=== PATIENT | male | born 1950 | race Caucasian/White ===

== ENCOUNTER 2018-11-11 05:34 | Emergency (ER) | payer MEDICARE, MEDICAID ==
[~2018-11-11] VITALS: Ht 167.6 cm; Wt 75.3 kg
[2018-11-11 05:39] VITALS: Ht 167.6 cm; Wt 75.3 kg
--- NOTE | 2018-11-11 06:38 | ERD ---
ER Documentation Chief Complaint Chief Complaint pt reports bledding from mouth since yesterday HPI This is a 68-year-old male with a past medical history of hypertension, end- stage renal disease status post left arm graft on dialysis Monday//Monday who is presenting with reported hematemesis. The patient got dialysis yesterday morning without complication. He went home. At approximately 1:00 in the afternoon, he reports vomiting up bright red blood. He reports spitting up blood since then. He does have clots around the maxillary right teeth that appear to be related to recent dental bleeding, but the patient is adamant that the bleeding is coming from the stomach. The patient does not endorse any active nausea and has not vomited recently. He is simply intermittently spitting up blood. There is does not appear to be any active bleeding. The patient denies any other symptoms. He denies abdominal pain. He denies constipation or diarrhea. He denies black or bloody or tarry stools. He denies headache or vision changes. He denies any lightheadedness or dizziness. The patient denies feeling sick recently. The patient denies fever or chills. The patient has had no headache or vision changes. The patient does not endorse neck or back pain. The patient has had no chest pain or trouble breathing. The patient has had no focal deficits. The patient has had no weakness or numbness or tingling to the face or extremities. ROS All systems reviewed and are negative except as per history of present illness. Medications Home Meds Unable to Obtain Active Prescriptions or Reported Meds Allergies Allergies: Coded Allergies: No Known Allergy (Unverified , 11/11/18) PMhx/Soc Medical and Surgical Hx: pt denies Surgical Hx History of Surgery: Yes (eyes, left arm AV graft) Hx Cardiac Disorders: Yes (Hypertension) Hx Psychiatric Problems: No Hx Miscellaneous Medical Probl: Yes (ESRD on HD) Hx Alcohol Use: No Hx Substance Use: No Hx Tobacco Use: No Smoking Status: Never smoker FmHx Family History: No diabetes Physical Exam Vitals Vital Signs Date Temp Pulse Resp B/P (MAP) Pulse Ox O2 O2 Flow FiO2 Time Delivery Rate 11/11/18 73 20 163/78 98 Room Air 06:20 (106) 11/11/18 98.0 71 16 141/89 98 Room Air 06:02 (106) 11/11/18 97.0 72 16 158/82 98 05:39 (107) Physical Exam Const: No acute distress Head: Atraumatic Eyes: Normal Conjunctiva ENT: Normal External Ears, Nose. Dried clotted blood around the right maxillary teeth appears to be related to a recent bleed. Neck: Full range of motion. No meningismus. Resp: Clear to auscultation bilaterally Cardio: Regular rate and rhythm, no murmurs Abd: Soft, non tender, non distended. Normal bowel sounds Skin: No petechiae or rashes Back: No midline or flank tenderness Ext: No cyanosis, or edema. Right upper extremity AV graft with palpable pulsatile thrill. Neur: Awake and alert Psych: Normal Mood and Affect Result Diagram: 11/11/18 0700 11/11/18 0700 Results 24 hrs Laboratory Tests Test 11/11/18 07:00 White Blood Count 6.4 10^3/ul Red Blood Count 3.72 10^6/ul Hemoglobin 10.9 g/dl Hematocrit 34.9 % Mean Corpuscular Volume 93.8 fl Mean Corpuscular Hemoglobin 29.3 pg Mean Corpuscular Hemoglobin Concent 31.2 g/dl Red Cell Distribution Width 16.1 % Platelet Count 121 10^3/UL Mean Platelet Volume 10.4 fl Immature Granulocytes % 0.200 % Neutrophils % 48.9 % Lymphocytes % 34.5 % Monocytes % 10.3 % Eosinophils % 5.6 % Basophils % 0.5 % Nucleated Red Blood Cells % 0.0 /100WBC Immature Granulocytes # 0.010 10^3/ul Neutrophils # 3.1 10^3/ul Lymphocytes # 2.2 10^3/ul Monocytes # 0.7 10^3/ul Eosinophils # 0.4 10^3/ul Basophils # 0.0 10^3/ul Nucleated Red Blood Cells # 0.0 10^3/ul Prothrombin Time 12.8 Sec Prothrombin Time Ratio 1.0 INR International Normalized Ratio 0.95 Activated Partial Thromboplast Time 37.0 Sec Sodium Level 141 mmol/L Potassium Level 4.4 mmol/L Chloride Level 102 mmol/L Carbon Dioxide Level 26 mmol/L Anion Gap 13 Blood Urea Nitrogen 53 mg/dl Creatinine 8.17 mg/dl Est Glomerular Filtrat Rate mL/min 7 mL/min Glucose Level 117 mg/dl Calcium Level 8.8 mg/dl Total Bilirubin 0.2 mg/dl Direct Bilirubin 0.00 mg/dl Indirect Bilirubin 0.2 mg/dl Aspartate Amino Transf (AST/SGOT) 14 IU/L Alanine Aminotransferase (ALT/SGPT) 18 IU/L Alkaline Phosphatase 74 IU/L Troponin I < 0.012 ng/ml Total Protein 7.4 g/dl Albumin 4.2 g/dl Globulin 3.20 g/dl Albumin/Globulin Ratio 1.31 Current Medications Medications Dose Sig/Hodan Start Time Status Last (Trade) Ordered Route PRN Stop Time Admin Dose Reason Admin Famotidine 20 mg ONCE STAT 11/11/18 DC (Pepcid Iv) IV 07:00 11/11/18 07:02 40 ml ONCE STAT 11/11/18 DC Miscellaneous PO 07:00 Medication 11/11/18 07:02 (Gi Cocktail (2)) Belladonna/ 2 tab ONCE STAT 11/11/18 DC Phenobarbital PO 07:00 () 11/11/18 07:02 Procedures/MDM MDM The patient's presentation warrants further investigation. Previous medical records, if available, were reviewed. LABS The patient's laboratory testing was obtained and reviewed. No emergent treatment was required unless described below. CBC: No E/o systemic infection or thrombocytopenia. Mild normocytic anemia, not emergent. Chemistry: No E/o severe acidosis or alkalosis or liver disease or diabetic ketoacidosis. Elevated BUN and creatinine in line with known end-stage renal disease. PT/INR: No E/o significant coagulopathy Troponin: No E/o acute ischemia Type & screen: O positive EKG EKG read by me: Rate/Rhythm: Regular rate and rhythm at a rate of 72 bpm Intervals: Normal [place]: Left axis deviation Impression: No evidence of acute ischemia or arrhythmia IMAGING Imaging and Radiology interpretation reviewed. CXR 1V Interpreted by me Soft Tissue: No acute abnormalities Bones: No acute abnormalities Mediastinum/Cardiac Silhouette: Unremarkable. No widened mediastinum. Lungs: No acute abnormalities. Normal pulmonary vasculature. No pneumothorax. No pulmonary edema. Clear costal diaphragmatic angles. No pleural effusions. No opacity or consolidations concerning for pneumonia. TREATMENT/DISPOSITION The patient presents for reported GI bleeding. I do see evidence of bleeding from the gums recently, and I am suspicious that this is the etiology of his bleeding. If he swallowed this blood, he that could have led to vomiting blood yesterday. The patient's chest x-ray is unremarkable. I do not see any evidence of pneumoperitoneum. The patient's abdominal exam is benign. I do not suspect viscus perforation. Peptic ulcer disease versus gastritis are certainly possibilities. The patient was given a GI cocktail and Pepcid in the emergency department. The patient's bleeding did start after dialysis. It is also possible that the heparin from dialysis was still in his system. At this time, I do not feel that protamine is required as I do not see any evidence of active bleeding. The patient does not have symptoms of symptomatic anemia. His hemoglobin is stable. I do feel that the patient is stable for discharge and may follow-up in an outpatient setting. He does not have any bleeding from his shunt. DISCHARGE Upon reevaluation of the patient, symptoms have improved. No emergent diagnoses were identified. At this time, I feel that the patient stable for discharge. The patient was instructed to follow-up with a primary care physician in 1-3 days. The patient will be given strict precautions with which to return to the emergency department. Prescriptions: Pepcid The patient's blood pressure was elevated at greater than 120/80 while in the emergency department. The patient was otherwise stable with no evidence of hypertensive urgency or emergency. The patient does not require admission for blood pressure control. I have discussed with the patient the risks of hypertension. I have instructed the patient to return to the ER for any new or worsening symptoms including chest pain, shortness of breath, headache, blurred vision, confusion, nausea, vomiting or LOC. I have advised the patient to follow up with the primary care physician for outpatient monitoring and treatment for hypertension in 1-3 days. Disclaimer: Inadvertent spelling and grammatical errors are likely due to EHR/dictation software use and do not reflect on the overall quality of patient care. Note that the electronic time recorded on this note does not necessarily reflect the actual time of the patient encounter. Departure Diagnosis: Primary Impression: Upper GI bleed Additional Impressions: Gingival bleeding End stage renal disease on dialysis Condition: Stable Patient Instructions: Chronic Renal Failure, When You Have Gastrointestinal (GI) Bleeding Additional Instructions: Thank you for for coming to [facility] for your care today. Please ask your nurse or provider if you have questions about your care today and do not leave until all your questions have been answered. Please use any medications given as directed and follow-up with your doctor (or the doctor you were referred to) in the next 1-3 days. If you do not have a primary care doctor you may follow up at the [facility] or [facility] (listed below). You may also use motrin and tylenol as needed for fever and/or pain unless instructed otherwise by your provider or nurse. Indications for more urgent follow-up have been discussed, but you may return to the Emergency Department at ANY time for any worrisome or worsening symptoms. If you have abdominal pain, please know that no test or exam you received is perfect and you should follow up within 8 hours for continued pain. If you had any imaging studies today, such as an X-Ray or CT Scan, these studies will be reviewed later by a radiologist. You will be called if there are important findings that were not identified today, so make sure the contact information you provided at registration is correct. If you received any narcotic pain control medicine today, such as Vicodin, Morphine or Dilaudid, your coordination and judgment may be affected for a number of hours. Please do not drive or operate heavy machinery, and you may want someone to assist you at home. If you were given a prescription for narcotic medication, be aware that it is very addictive- use sparingly and only if necessary. PLEASE SEEK FURTHER EVALUATION AND MANAGEMENT AT YOUR DOCTORS OFFICE WITHIN THE NEXT 1-3 DAYS. IT IS YOUR RESPONSIBILITY TO MAKE AN APPOINTMENT FOR FOLOW-UP CARE. IF YOU HAVE A PRIMARY DOCTOR, PLEASE CALL THEIR OFFICE TO SCHEDULE AN APPOI NTMENT FOR FOLLOW UP. IF YOU DO NOT HAVE A PRIMARY DOCTOR YOU CAN CALL OUR PHYSICIAN REFERRAL HOTLINE AT IF YOU CAN NOT AFFORD TO SEE A PHYSICIAN YOU CAN CHOSE FROM THE FOLLOWING [facility] CLINICS: [facility] [address] [facility] [address] [facility] [address] [facility] [address] [facility] [address] [facility] [facility]. [address] RANDY CARMICHAEL MD Nov 11, 2018 06:33
[2018-11-11] MEDS ORDERED: LIDOCAINE/MYLANTA 40 ML BTL PO STA (07:00)
[2018-11-11] MEDS ORDERED: FAMOTIDINE 20 MG INJ IV STA (07:00)
[2018-11-11] MEDS ORDERED: BELLADONNA/PHENOBARBITAL TAB PO STA (07:00)
[2018-11-11] MEDS ORDERED: FAMO-96 PO (10:20)
[2018-11-11 11:30] VITALS: BP 174/78; PULSE 67; RESP 16
== END 2018-11-11 11:30 | disposition home or self-care (01) ==
LOC: E/R 05:34
DX: K92.0 Hematemesis (principal); K06.8 Other specified disorders of gingiva and edentulous alveolar ridge; I12.0 Hypertensive chronic kidney disease with stage 5 chronic kidney disease or end stage renal disease; N18.6 End stage renal disease; Z99.2 Dependence on renal dialysis
CPT/HCPCS: 36415; 71045; 80053; 84484; 85025; 85610; 85730; 86850; 86900; 86901; 93005